=== PATIENT | female | born 1985 | race American Indian/Alaskan Native ===

== ENCOUNTER 2020-12-11 01:07 | Emergency (ER) | payer SELFPAY ==
[2020-12-11 01:16] VITALS: BP 226/155
[2020-12-11] MEDS ORDERED: ACETAMINOPHEN 500 MG TAB PO ONE (01:26)
[2020-12-11] MEDS ORDERED: hydrALAZINE 25 MG TAB PO ONE (01:26)
[2020-12-11] MEDS ORDERED: IBUPROFEN 600 MG TAB PO ONE (01:26)
--- NOTE | 2020-12-11 02:21 | XRay Report ---
RIGHT FOOT 3 VIEW(S) INDICATION / CLINICAL INFORMATION: R foot pain COMPARISON: None available. FINDINGS: BONES / JOINT(S): No acute fracture or subluxation. Minimal 1st MTP degenerative arthrosis. SOFT TISSUES: No significant abnormality. ADDITIONAL FINDINGS: None. Signer Name: Jonathan Root MD Signed: 12/11/2020 2:17 AM Workstation Name: [id number]
--- NOTE | 2020-12-11 02:47 | Emergency Department Report ---
ED Lower Extremity HPI - General Chief Complaint: Extremity Injury, Lower Stated Complaint: TABLE FELL ON RIGHT FOOT/PAINFUL Source: patient Mode of arrival: Ambulatory Limitations: Physical Limitation - History of Present Illness Initial Comments: Patient is a 35-year-old -[place] female with a history of hypertension and noncompliant with medications who presents to the ED with complaint of acute onset persistent severe dorsal right foot pain and swelling after a table fell onto his her right foot about 8 hours ago. Patient states that the pain and swelling have worsened in the last 4 hours. Patient states that the pain is worse with any active range of motion or bearing weight on the right foot. Patient denies fall, nausea, vomiting, numbness and tingling or weakness of right foot, low back pain, chest pain or shortness of breath. MD Complaint: foot injury (Dorsal right foot pain) -: Sudden, hour(s) (8) Injury: Foot: Right (Dorsal right foot pain and swelling) Type of Injury: blunt Place: work Severity: severe Severity scale (0 -10): 8 Improves With: nothing Worsens With: weight bearing, movement, palpation Context: direct blow Associated Symptoms: swelling, able to partially bear weight. denies: numbness, tingling, unable to bear weight - Related Data Previous Rx's Medication Instructions Recorded Last Taken Type Baclofen 20 mg PO Q12H PRN #20 tablet 12/11/20 Unknown Rx Ibuprofen [Motrin] 800 mg PO Q8HR PRN #30 tablet 12/11/20 Unknown Rx amLODIPine 10 mg PO DAILY #30 tab 12/11/20 Unknown Rx traMADoL [Ultram] 50 mg PO Q6HR PRN #12 tablet 12/11/20 Unknown Rx Allergies Allergy/AdvReac Type Severity Reaction Status Date / Time -pril Allergy Unknown Uncoded 12/11/20 01:18 ED Review of Systems ROS: Stated complaint: TABLE FELL ON RIGHT FOOT/PAINFUL Other details as noted in HPI Constitutional: denies: chills, fever Eyes: denies: eye pain, eye discharge, vision change ENT: denies: ear pain, throat pain Respiratory: denies: cough, shortness of breath, wheezing Cardiovascular: denies: chest pain, palpitations Endocrine: no symptoms reported Gastrointestinal: denies: abdominal pain, nausea, diarrhea Genitourinary: denies: urgency, dysuria, discharge Musculoskeletal: joint swelling (Dorsal right foot swelling and pain), arthralgia (Dorsal right foot pain and swelling). denies: back pain Skin: denies: rash, lesions Neurological: denies: headache, weakness, paresthesias Psychiatric: denies: anxiety, depression Hematological/Lymphatic: denies: easy bleeding, easy bruising ED Past Medical Hx - Past Medical History Previous Medical History?: Yes Hx Hypertension: Yes - Surgical History Past Surgical History?: Yes Additional Surgical History: tinnitus - Medications Home Medications: Home Medications Medication Instructions Recorded Confirmed Last Taken Type Baclofen 20 mg PO Q12H PRN #20 tablet 12/11/20 Unknown Rx Ibuprofen [Motrin] 800 mg PO Q8HR PRN #30 tablet 12/11/20 Unknown Rx amLODIPine 10 mg PO DAILY #30 tab 12/11/20 Unknown Rx traMADoL [Ultram] 50 mg PO Q6HR PRN #12 tablet 12/11/20 Unknown Rx ED Physical Exam - General Limitations: Physical Limitation General appearance: alert, in no apparent distress - Head Head exam: Present: atraumatic, normocephalic, normal inspection - Eye Eye exam: Present: normal appearance, PERRL, EOMI Pupils: Present: normal accommodation - ENT ENT exam: Present: normal exam, normal orophraynx, mucous membranes moist, TM's normal bilaterally, normal external ear exam - Neck Neck exam: Present: normal inspection, full ROM - Respiratory Respiratory exam: Present: normal lung sounds bilaterally. Absent: respiratory distress, wheezes, rales, chest wall tenderness, accessory muscle use, decreased breath sounds - Cardiovascular Cardiovascular Exam: Present: regular rate, normal rhythm, normal heart sounds. Absent: systolic murmur, diastolic murmur, rubs, gallop - GI/Abdominal GI/Abdominal exam: Present: soft, normal bowel sounds. Absent: tenderness, guarding, rebound, hyperactive bowel sounds, hypoactive bowel sounds, organomegaly - Extremities Exam Extremities exam: Present: normal inspection, tenderness (Palpable right foot tenderness with mild swelling and limited range of motion due to pain), normal capillary refill, joint swelling (Mildly swollen dorsal right foot). Absent: full ROM (Limited range of motion of the right foot due to pain) - Back Exam Back exam: Present: normal inspection, full ROM. Absent: tenderness, CVA tenderness (R), CVA tenderness (L), muscle spasm, paraspinal tenderness, vertebral tenderness - Neurological Exam Neurological exam: Present: alert, oriented X3, CN II-XII intact, normal gait, reflexes normal - Psychiatric Psychiatric exam: Present: normal affect, normal mood - Skin Skin exam: Present: warm, dry, intact, normal color. Absent: rash ED Course Vital Signs 12/11/20 01:15 Temperature 98.3 F Pulse Rate 98 H Respiratory 16 Rate Blood Pressure 226/155 [Right] O2 Sat by Pulse 100 Oximetry ED Lower Extremity MDM - Radiology Data Radiology results: report reviewed, image reviewed [facility] [address] [place] [address] XRay Report Signed Patient: TONIAAugust MR#: [id number] : 1985 Acct:[id number] Age/Sex: 35 / F ADM Date: 12/11/20 Loc: ED Attending Dr: Ordering Physician: ALEX GONZALEZ Date of Service: 12/11/20 Procedure(s): XR foot 3+V RT Accession Number(s): [id number] cc: ALEX GONZALEZ Fluoro Time In Minutes: RIGHT FOOT 3 VIEW(S) INDICATION / CLINICAL INFORMATION: R foot pain COMPARISON: None available. FINDINGS: BONES / JOINT(S): No acute fracture or subluxation. Minimal 1st MTP degenerative arthrosis. SOFT TISSUES: No significant abnormality. ADDITIONAL FINDINGS: None. Signer Name: Jonathan Root MD Signed: 12/11/2020 2:17 AM Workstation Name: [id number] Transcribed By: DT Dictated By: Jamey Root MD Electronically Authenticated By: Jamey Root MD Signed Date/Time: 12/11/20216 DD/ 5 TD/TT: - Medical Decision Making This is a 35-year-old -[place] female with a history of hypertension and noncompliant with medications who presents to the ED with complaint of acute onset persistent severe dorsal right foot pain and swelling after a table fell onto his her right foot about 8 hours ago. Patient states that the pain and swelling have worsened in the last 4 hours. Patient states that the pain is worse with any active range of motion or bearing weight on the right foot. In the ED, patient is alert and oriented x3 and is not in any distress but hypertensive in triage. Patient states that she has not taken blood pressure medication in over 1 year. Patient was treated for pain in the ED and also given blood pressure medications in the ED to help control potential. Right foot x-ray shows no acute fractures or subluxations. On reevaluation, patient's pain is well controlled medications. Patient's blood pressure improved significantly and was therefore discharged home on pain medications, muscle relaxants and blood pressure medications. Patient is advised to return to the ED immediately if symptoms get worse, otherwise follow-up with her primary care physician in 5 to 7 days for reevaluation. - Differential Diagnosis Foot fracture; foot sprain; foot contusion; uncontrolled hypertension Critical care attestation.: If time is entered above; I have spent that time in minutes in the direct care of this critically ill patient, excluding procedure time. ED Disposition Clinical Impression: Contusion of right foot including toes Qualifiers: Encounter type: initial encounter Qualified Code(s): S90.31XA - Contusion of right foot, initial encounter Right foot sprain Qualifiers: Encounter type: initial encounter Qualified Code(s): S93.601A - Unspecified sprain of right foot, initial encounter Disposition: DC- TO HOME OR SELFCARE Is pt being admited?: No Does the pt Need Aspirin: No Condition: Stable Instructions: Foot Contusion, [id number], Foot Sprain, Crush Injury of the Foot, [id number] Additional Instructions: The right foot x-ray shows no acute fractures or subluxations. Your injuries are likely musculoskeletal, and therefore take pain medications with food, drink plenty of fluids and follow-up with your primary care physician in 7 to 10 days for reevaluation. Return to the ED immediately if symptoms get worse. Ensure that you take your blood pressure medication as well to avoid developing worsening symptoms like stroke or kidney failure. Prescriptions: amLODIPine 10 mg PO DAILY #30 tab Baclofen 20 mg PO Q12H PRN #20 tablet PRN Reason: Muscle Spasm Ibuprofen [Motrin] 800 mg PO Q8HR PRN #30 tablet PRN Reason: Pain , Severe (7-10) traMADoL [Ultram] 50 mg PO Q6HR PRN #12 tablet PRN Reason: Pain Referrals: EBONI CLAYTON MD [Staff Physician] - 3-5 Days Forms: Work/School Release Form(ED) Time of Disposition: 02:45 Print Language: SERBIAN
== END 2020-12-11 03:40 | disposition home or self-care (01) ==
LOC: ED 01:07
DX: S93.601A Unspecified sprain of right foot, initial encounter (principal); S90.31XA Contusion of right foot, initial encounter; I10 Essential (primary) hypertension; Z79.899 Other long term (current) drug therapy; Z88.8 Allergy status to other drugs, medicaments and biological substances; Z98.890 Other specified postprocedural states; W17.89XA Other fall from one level to another, initial encounter; Y93.89 Activity, other specified; Y92.89 Other specified places as the place of occurrence of the external cause; Y99.0 Civilian activity done for income or pay